=== PATIENT | male | born 1980 | race Caucasian/White ===

== ENCOUNTER 2016-06-21 17:16 | Emergency (ER) | payer SELFPAY ==
[~2016-06-21] VITALS: Ht 193 cm; Wt 163.0 kg
[~2016-06-21 17:16] MED LIST: AMLODIPINE BESY10 MG PO; AMLODIPINE10 MG PO; CIPROFLOXACN500 MG PO; CLONIDINE0.1 MG PO; CORTISPORIN OTI10 ML AD; FLEXERIL PO; FLEXERIL5 MG PO; LABETALOL300 MG PO; LORTAB 1010 MG PO; MEDDOSEPAK PO; NORCO1 TA1 PO; ULTRAM50 M1 PO; ZOFRAN ODT4 MG PO; ZPAK PO
[2016-06-21] MEDS ORDERED: LISINOPRIL20 MG PO (17:32)
[2016-06-21] MEDS ORDERED: ESCITALOPRAM OX10 MG PO (17:32)
[2016-06-21] MEDS ORDERED: AMLODIPINE5 MG PO (17:33)
[2016-06-21 17:51] LABS: HEMATOCRIT 40.9 % (39.0-50.0); HEMOGLOBIN 13.8 g/dl (14.0-18.0); IMMATURE GRANULOCYTES 0.3 % (0.0-1.0); MEAN CELL VOLUME 83.8 fL CALC (80.0-100.0); MEAN CORPUSCULAR HGB 28.3 pG CALC (26.0-32.0); MEAN CORPUSCULAR HGB CONC 33.7 g/L CALC (32.0-36.0); NEUT# 10.17 thou/uL (1.82-7.42); RED BLOOD COUNT 4.88 mill/uL (4.70-6.10); RED CELL DISTRI WIDTH 12.4 % (11.5-15.5)
[2016-06-21 17:55] LABS: URINE BILIRUBIN - DIPSTICK NEGATIVE (NEGATIVE); URINE BLOOD DIPSTICK LARGE (NEGATIVE); URINE CLARITY CLOUDY; URINE GLUCOSE - DIPSTICK NEGATIVE (NEGATIVE); URINE KETONE NEGATIVE (NEGATIVE); URINE LEUK ESTERASE NEGATIVE (NEGATIVE); URINE NITRITE - DIPSTICK NEGATIVE (Negative); URINE PROTEIN - DIPSTICK TRACE mg/dL (NEG-TRACE); URINE SPECIFIC GRAVITY >=1.030; URINE UROBILINOGEN - DIPSTICK 0.2 E.U./dL (0.2)
[2016-06-21 17:57] LABS: URINE COLOR AMBER
[2016-06-21 18:04] LABS: ALBUMIN 4.3 g/dL (3.2-5.0); ALKALINE PHOSPHATASE 65 u/l (38-126); ANION GAP 18 (6-22 (CALC)); BILIRUBIN, TOTAL 0.6 mg/dL (0.0-1.4); BUN 13 mg/dL (9-20); BUN/CREATININE RATIO 16 (12-20 (CALC)); CALCIUM 9.6 mg/dL (8.4-10.2); CARBON DIOXIDE 25 mmol/l (22-30); CHLORIDE 104 mmol/l (95-108); CREATININE 0.8 mg/dL (0.7-1.3); GFR > 60 ML/MIN (>=60 (CALC)); GFR FOR AFR.AMER. > 60 ML/MIN (>=60 (CALC)); GLUCOSE 96 mg/dL (75-110); POTASSIUM 4.1 mmol/l (3.5-5.1); SGOT/AST 32 u/l (17-59); SGPT/ALT 47 u/l (21-72); SODIUM 143 mmol/l (137-146); TOTAL PROTEIN 8.4 g/dL (6.3-8.2)
[2016-06-21 18:08] LABS: URINE RBC >100 RBC/hpf (0-5)
[2016-06-21] MEDS ORDERED: ASPIRIN EC81 MG PO (18:35)
[2016-06-21] MEDS ORDERED: FISH OIL1000 MG PO (18:36)
[2016-06-21 20:12] VITALS: BP 130/86
[2016-06-21] MEDS ORDERED: CIPRO XR500 MG PO (20:13)
[2016-06-21] MEDS ORDERED: PERCOCET 5/325M1 TAB PO (20:13)
== END 2016-06-21 20:26 | disposition home or self-care (01) | DRG 305 ==
LOC: ED 17:16
PROVIDERS: Emergency Medicine
DX: I10 Essential (primary) hypertension (principal); N34.2 Other urethritis; N50.82 Scrotal pain; R10.31 Right lower quadrant pain; R31.29 Other microscopic hematuria; Z87.442 Personal history of urinary calculi

== ENCOUNTER 2016-08-31 19:09 | Emergency (ER) | payer SELFPAY ==
[~2016-08-31] VITALS: Ht 193 cm; Wt 159.1 kg
[~2016-08-31 19:09] MED LIST changes: +ADLT ASA LOW81 MG PO; +AMLODIPINE5 MG PO; +CIPRO XR500 MG PO; +ESCITALOPRAM OX10 MG PO; +FISH OIL1000 MG PO; +LISINOPRIL20 MG PO; +PERCOCET 5/325M1 TAB PO
[2016-08-31] MEDS ORDERED: LISINOPRIL40 MG PO (19:27)
[2016-08-31 19:53] LABS: URINE BLOOD DIPSTICK LARGE (NEGATIVE); URINE CLARITY CLEAR; URINE COLOR YELLOW; URINE GLUCOSE - DIPSTICK NEGATIVE (NEGATIVE); URINE KETONE TRACE mg/dL (NEGATIVE); URINE LEUK ESTERASE NEGATIVE (NEGATIVE); URINE NITRITE - DIPSTICK NEGATIVE (Negative); URINE PROTEIN - DIPSTICK 30 mg/dL (NEG-TRACE); URINE SPECIFIC GRAVITY >=1.030; URINE UROBILINOGEN - DIPSTICK 0.2 E.U./dL (0.2)
[2016-08-31 19:55] LABS: URINE BILIRUBIN - DIPSTICK NEGATIVE (NEGATIVE)
[2016-08-31 20:01] LABS: URINE WBC 0-2 WBC/hpf (0-5)
[2016-08-31 20:07] LABS: HEMATOCRIT 45.1 % (39.0-50.0); HEMOGLOBIN 15.3 g/dl (14.0-18.0); IMMATURE GRANULOCYTES 0.2 % (0.0-1.0); MEAN CELL VOLUME 83.5 fL CALC (80.0-100.0); MEAN CORPUSCULAR HGB 28.3 pG CALC (26.0-32.0); MEAN CORPUSCULAR HGB CONC 33.9 g/L CALC (32.0-36.0); NEUT# 13.19 thou/uL (1.82-7.42); RED BLOOD COUNT 5.4 mill/uL (4.70-6.10); RED CELL DISTRI WIDTH 12.5 % (11.5-15.5)
[2016-08-31 20:20] LABS: ALBUMIN 4.5 g/dL (3.2-5.0); ALKALINE PHOSPHATASE 66 u/l (38-126); AMYLASE 46 u/l (30-110); ANION GAP 19 (6-22 (CALC)); BILIRUBIN, TOTAL 1.2 mg/dL (0.0-1.4); BUN 17 mg/dL (9-20); BUN/CREATININE RATIO 14 (12-20 (CALC)); CALCIUM 9.3 mg/dL (8.4-10.2); CARBON DIOXIDE 23 mmol/l (22-30); CHLORIDE 103 mmol/l (95-108); CREATININE 1.2 mg/dL (0.7-1.3); GFR > 60 ML/MIN (>=60 (CALC)); GFR FOR AFR.AMER. > 60 ML/MIN (>=60 (CALC)); GLUCOSE 109 mg/dL (75-110); LIPASE 93 u/l (23-300); POTASSIUM 4.5 mmol/l (3.5-5.1); SGOT/AST 22 u/l (17-59); SGPT/ALT 50 u/l (21-72); SODIUM 141 mmol/l (137-146); TOTAL PROTEIN 7.9 g/dL (6.3-8.2)
[2016-08-31] MEDS ORDERED: TAMSULOSIN0.4 MG PO (20:51)
[2016-08-31] MEDS ORDERED: PERCOCET 5/325M1 TAB PO (20:51)
[2016-08-31] MEDS ORDERED: ZOFRAN ODT4 MG PO (20:51)
[2016-08-31] MEDS ORDERED: IMODIUM2 MG PO (20:51)
[2016-08-31] MEDS ORDERED: CIPROFLOXACN500 MG PO (20:51)
[2016-08-31 21:10] VITALS: BP 112/74
== END 2016-08-31 21:10 | disposition home or self-care (01) | DRG 694 ==
LOC: ED 19:09
PROVIDERS: Emergency Medicine
DX: N13.2 Hydronephrosis with renal and ureteral calculous obstruction (principal); R50.9 Fever, unspecified; Z87.442 Personal history of urinary calculi; R11.2 Nausea with vomiting, unspecified; R10.9 Unspecified abdominal pain

== ENCOUNTER 2016-12-17 22:27 | Emergency (ER) | payer SELFPAY ==
[~2016-12-17] VITALS: Ht 193 cm; Wt 150.8 kg
[~2016-12-17 22:27] MED LIST changes: +IMODIUM2 MG PO; +LISINOPRIL40 MG PO; +TAMSULOSIN0.4 MG PO
[2016-12-17] MEDS ORDERED: BACTRIM DS1 TAB PO (23:19)
[2016-12-17] MEDS ORDERED: CIPROFLOXACN500 MG PO (23:19)
[2016-12-17] MEDS ORDERED: PERCOCET 5/325M1 TAB PO (23:21)
[2016-12-17 23:24] VITALS: BP 139/97
== END 2016-12-17 23:24 | disposition home or self-care (01) | DRG 603 ==
LOC: ED 22:27
DX: L02.31 Cutaneous abscess of buttock (principal)

== ENCOUNTER 2017-01-08 14:46 | Emergency (ER) | payer OTHER ==
[~2017-01-08] VITALS: Ht 193 cm; Wt 150.0 kg
[~2017-01-08 14:46] MED LIST changes: +BACTRIM DS1 TAB PO
[2017-01-08] MEDS ORDERED: CIPROFLOXACN750 MG PO (15:16)
[2017-01-08 15:49] LABS: HEMATOCRIT 41.3 % (39.0-50.0); HEMOGLOBIN 13.7 g/dl (14.0-18.0); IMMATURE GRANULOCYTES 0.3 % (0.0-1.0); MEAN CELL VOLUME 85.5 fL CALC (80.0-100.0); MEAN CORPUSCULAR HGB 28.4 pG CALC (26.0-32.0); MEAN CORPUSCULAR HGB CONC 33.2 g/L CALC (32.0-36.0); NEUT# 7.08 thou/uL (1.82-7.42); RED BLOOD COUNT 4.83 mill/uL (4.70-6.10); RED CELL DISTRI WIDTH 11.9 % (11.5-15.5)
[2017-01-08 15:50] LABS: URINE BILIRUBIN - DIPSTICK NEGATIVE (NEGATIVE); URINE BLOOD DIPSTICK NEGATIVE (NEGATIVE); URINE CLARITY CLEAR; URINE COLOR YELLOW; URINE GLUCOSE - DIPSTICK NEGATIVE (NEGATIVE); URINE KETONE TRACE mg/dL (NEGATIVE); URINE LEUK ESTERASE NEGATIVE (NEGATIVE); URINE NITRITE - DIPSTICK NEGATIVE (Negative); URINE PROTEIN - DIPSTICK NEGATIVE (NEG-TRACE); URINE SPECIFIC GRAVITY 1.025; URINE UROBILINOGEN - DIPSTICK 0.2 E.U./dL (0.2)
[2017-01-08 16:04] LABS: ALKALINE PHOSPHATASE 62 u/l (38-126); ANION GAP 13 (6-22 (CALC)); BILIRUBIN, TOTAL 0.6 mg/dL (0.0-1.4); BUN 10 mg/dL (9-20); BUN/CREATININE RATIO 14 (12-20 (CALC)); CALCIUM 9.3 mg/dL (8.4-10.2); CARBON DIOXIDE 25 mmol/l (22-30); CHLORIDE 108 mmol/l (95-108); CREATININE 0.7 mg/dL (0.7-1.3); GFR > 60 ML/MIN (>=60 (CALC)); GFR FOR AFR.AMER. > 60 ML/MIN (>=60 (CALC)); GLUCOSE 127 mg/dL (75-110); POTASSIUM 3.9 mmol/l (3.5-5.1); SGOT/AST 21 u/l (17-59); SGPT/ALT 38 u/l (21-72); SODIUM 143 mmol/l (137-146); TOTAL PROTEIN 7.3 g/dL (6.3-8.2)
[2017-01-08 16:09] VITALS: BP 191/133
== END 2017-01-08 16:10 | disposition home or self-care (01) | DRG 395 ==
LOC: ED 14:46
PROVIDERS: Emergency Medicine
DX: K62.89 Other specified diseases of anus and rectum (principal); I10 Essential (primary) hypertension; Z87.442 Personal history of urinary calculi

== ENCOUNTER 2017-03-08 14:02 | Emergency (ER) | payer OTHER ==
[~2017-03-08] VITALS: Ht 193 cm; Wt 151.4 kg
[~2017-03-08 14:02] MED LIST changes: +CIPROFLOXACN750 MG PO
[2017-03-08] MEDS ORDERED: CLONIDINE HCL0.1 MG PO (14:11)
[2017-03-08] MEDS ORDERED: ADVIL200 MG PO (14:11)
[2017-03-08] MEDS ORDERED: AMLODIPINE5 MG PO (14:22)
[2017-03-08] MEDS ORDERED: CLONIDINE0.1 MG PO (14:22)
[2017-03-08] MEDS ORDERED: LISINOPRIL40 MG PO (14:22)
[2017-03-08 14:55] VITALS: BP 164/118
== END 2017-03-08 15:08 | disposition home or self-care (01) | DRG 103 ==
LOC: ED 14:02
DX: G44.209 Tension-type headache, unspecified, not intractable (principal); I16.0 Hypertensive urgency; Z91.14 Patient's other noncompliance with medication regimen

== ENCOUNTER 2017-04-10 12:21 | Emergency (ER) | payer MEDICAID ==
[~2017-04-10] VITALS: Ht 193 cm; Wt 154.0 kg
[~2017-04-10 12:21] MED LIST changes: +ADVIL200 MG PO; +CLONIDINE HCL0.1 MG PO
[2017-04-10 14:56] LABS: ALBUMIN 4.3 g/dL (3.2-5.0); ALKALINE PHOSPHATASE 72 u/l (38-126); ANION GAP 15 (6-22 (CALC)); BILIRUBIN, TOTAL 0.7 mg/dL (0.0-1.4); BUN 9 mg/dL (9-20); BUN/CREATININE RATIO 12 (12-20 (CALC)); CARBON DIOXIDE 26 mmol/l (22-30); CHLORIDE 106 mmol/l (95-108); CREATININE 0.8 mg/dL (0.7-1.3); GFR > 60 ML/MIN (>=60 (CALC)); GFR FOR AFR.AMER. > 60 ML/MIN (>=60 (CALC)); HEMATOCRIT 41.5 % (39.0-50.0); HEMOGLOBIN 13.8 g/dl (14.0-18.0); IMMATURE GRANULOCYTES 0.4 % (0.0-1.0); MEAN CELL VOLUME 84.9 fL CALC (80.0-100.0); MEAN CORPUSCULAR HGB 28.2 pG CALC (26.0-32.0); MEAN CORPUSCULAR HGB CONC 33.3 g/L CALC (32.0-36.0); NEUT# 7.22 thou/uL (1.82-7.42); RED BLOOD COUNT 4.89 mill/uL (4.70-6.10); SGOT/AST 23 u/l (17-59); SGPT/ALT 37 u/l (21-72); SODIUM 143 mmol/l (137-146); TOTAL PROTEIN 7.5 g/dL (6.3-8.2)
[2017-04-10] MEDS ORDERED: NAPROSYN500 MG PO (16:40)
[2017-04-10] MEDS ORDERED: ULTRAM50 M1 PO (16:40)
[2017-04-10] MEDS ORDERED: FLEXERIL PO (16:40)
[2017-04-10 17:15] VITALS: BP 131/74
== END 2017-04-10 17:15 | disposition home or self-care (01) | DRG 103 ==
LOC: ED 12:21
PROVIDERS: Emergency Medicine
DX: R51 Headache (principal); H53.149 Visual discomfort, unspecified; I10 Essential (primary) hypertension

== ENCOUNTER 2017-09-28 19:02 | Emergency (ER) | payer OTHER ==
[~2017-09-28] VITALS: Ht 193 cm; Wt 170.0 kg
[~2017-09-28 19:02] MED LIST changes: +NAPROSYN500 MG PO
[2017-09-28] MEDS ORDERED: METO50TA52 PO (20:56)
[2017-09-28] MEDS ORDERED: DOXYCYCL HYC100 MG PO (20:56)
[2017-09-28 21:26] VITALS: BP 160/110
== END 2017-09-28 21:26 | disposition home or self-care (01) ==
LOC: ED 19:02
DX: L03.115 Cellulitis of right lower limb (principal); I10 Essential (primary) hypertension; S80.861A Insect bite (nonvenomous), right lower leg, initial encounter; W57.XXXA Bitten or stung by nonvenomous insect and other nonvenomous arthropods, initial encounter; Z91.14 Patient's other noncompliance with medication regimen

== ENCOUNTER 2017-10-16 19:36 | Emergency (ER) | payer SELFPAY ==
[~2017-10-16] VITALS: Ht 193 cm; Wt 164.4 kg
[~2017-10-16 19:36] MED LIST changes: +DOXYCYCL HYC100 MG PO; +METO50TA52 PO
[2017-10-16] MEDS ORDERED: CLONIDINE0.1 MG PO (19:45)
[2017-10-16] MEDS ORDERED: LISINOP/HCTZ1 TA2 PO (19:45)
[2017-10-16] MEDS ORDERED: FLEXERIL PO (20:32)
[2017-10-16] MEDS ORDERED: MOTRIN800 MG PO (20:32)
[2017-10-16 20:35] VITALS: BP 113/70
== END 2017-10-16 20:35 | disposition home or self-care (01) | DRG 563 ==
LOC: ED 19:36
DX: S39.012A Strain of muscle, fascia and tendon of lower back, initial encounter (principal); I10 Essential (primary) hypertension; X50.0XXA Overexertion from strenuous movement or load, initial encounter

== ENCOUNTER 2018-03-12 20:03 | Emergency (ER) | payer OTHER ==
[~2018-03-12] VITALS: Ht 193 cm; Wt 171.8 kg
[~2018-03-12 20:03] MED LIST changes: +LISINOP/HCTZ1 TA2 PO; +MOTRIN800 MG PO
[2018-03-12 20:52] LABS: HEMATOCRIT 42.7 % (39.0-50.0); HEMOGLOBIN 14.5 g/dl (14.0-18.0); IMMATURE GRANULOCYTES 0.4 % (0.0-5.0); MEAN CELL VOLUME 84.4 fL CALC (80.0-100.0); MEAN CORPUSCULAR HGB 28.7 pG CALC (26.0-32.0); NEUT# 7.91 thou/uL (1.82-7.42); RED BLOOD COUNT 5.06 mill/uL (4.70-6.10)
[2018-03-12 20:53] LABS: URINE BILIRUBIN - DIPSTICK NEGATIVE (NEGATIVE); URINE BLOOD DIPSTICK NEGATIVE (NEGATIVE); URINE COLOR YELLOW; URINE GLUCOSE - DIPSTICK NEGATIVE (NEGATIVE); URINE KETONE TRACE mg/dL (NEGATIVE); URINE LEUK ESTERASE NEGATIVE (NEGATIVE); URINE NITRITE - DIPSTICK NEGATIVE (Negative); URINE PROTEIN - DIPSTICK 30 mg/dL (NEG-TRACE); URINE SPECIFIC GRAVITY >=1.030; URINE UROBILINOGEN - DIPSTICK 0.2 E.U./dL (0.2)
[2018-03-12 20:55] LABS: BARBITURATES NEGATIVE (NEGATIVE); COCAINE NEGATIVE (NEGATIVE); METHADONE NEGATIVE (NEGATIVE); OXCYCODONE NEGATIVE (NEGATIVE); TETRAHYDROCANNABIONOL NEGATIVE (NEGATIVE); TRICYLIC ANTIDEPRESSANTS NEGATIVE (NEGATIVE)
[2018-03-12 21:03] LABS: URINE MUCUS MODERATE hpf (NONE-FEW); URINE SQUAMOUS EPITHELIAL CELL FEW EPI/hpf (0-FEW)
[2018-03-12 21:07] LABS: ALBUMIN 4.2 g/dL (3.2-5.0); ALKALINE PHOSPHATASE 76 u/l (38-126); ANION GAP 16 (6-22 (CALC)); BILIRUBIN, TOTAL 0.6 mg/dL (0.0-1.4); BUN 13 mg/dL (9-20); BUN/CREATININE RATIO 16 (12-20 (CALC)); CARBON DIOXIDE 28 mmol/l (22-30); CHLORIDE 101 mmol/l (95-108); CREATININE 0.8 mg/dL (0.7-1.3); GFR > 60 ML/MIN (>=60 (CALC)); GFR FOR AFR.AMER. > 60 ML/MIN (>=60 (CALC)); POTASSIUM 4.4 mmol/l (3.5-5.1); SGOT/AST 28 u/l (17-59); SODIUM 141 mmol/l (137-146); TOTAL PROTEIN 7.8 g/dL (6.3-8.2)
[2018-03-12 23:53] VITALS: BP 162/75
== END 2018-03-12 23:53 | disposition home or self-care (01) ==
LOC: ED 20:03
PROVIDERS: Emergency Medicine
DX: R51 Headache (principal); I10 Essential (primary) hypertension; R11.2 Nausea with vomiting, unspecified

== ENCOUNTER 2018-09-20 21:43 | Observation (INO) | payer OTHER ==
[~2018-09-20] VITALS: Ht 193 cm; Wt 176.2 kg
[2018-09-20 22:05] LABS: HEMATOCRIT 41.2 % (39.0-50.0); HEMOGLOBIN 13.8 g/dl (14.0-18.0); IMMATURE GRANULOCYTES 0.2 % (0.0-5.0); MEAN CELL VOLUME 83.6 fL CALC (80.0-100.0); MEAN CORPUSCULAR HGB CONC 33.5 g/L CALC (32.0-36.0); NEUT# 7.4 thou/uL (1.82-7.42); RED BLOOD COUNT 4.93 mill/uL (4.70-6.10); RED CELL DISTRI WIDTH 12.2 % (11.5-15.5)
[2018-09-20 22:23] LABS: ALBUMIN 4.3 g/dL (3.2-5.0); ALKALINE PHOSPHATASE 74 u/l (38-126); ANION GAP 16 (6-22 (CALC)); BILIRUBIN, TOTAL 0.5 mg/dL (0.0-1.4); BUN 13 mg/dL (9-20); BUN/CREATININE RATIO 15 (12-20 (CALC)); CARBON DIOXIDE 25 mmol/l (22-30); CHLORIDE 105 mmol/l (95-108); CREATININE 0.9 mg/dL (0.7-1.3); GFR > 60 ML/MIN (>=60 (CALC)); GFR FOR AFR.AMER. > 60 ML/MIN (>=60 (CALC)); POTASSIUM 3.6 mmol/l (3.5-5.1); SGOT/AST 29 u/l (17-59); SODIUM 143 mmol/l (137-146); TOTAL PROTEIN 7.5 g/dL (6.3-8.2)
[2018-09-20 22:26] LABS: ACT PARTIAL THROMBO TIME 29.6 SECONDS (20.0-32.5)
[2018-09-20 22:35] LABS: MYOGLOBIN 60 ng/mL (0 - 121)
[2018-09-21] VITALS (12 sets, daily range): BP systolic 122–172; BP diastolic 72–113
[2018-09-21 01:27] LABS: URINE BILIRUBIN - DIPSTICK NEGATIVE (NEGATIVE); URINE BLOOD DIPSTICK TRACE-INTACT (NEGATIVE); URINE COLOR YELLOW; URINE GLUCOSE - DIPSTICK NEGATIVE (NEGATIVE); URINE KETONE NEGATIVE (NEGATIVE); URINE LEUK ESTERASE NEGATIVE (NEGATIVE); URINE NITRITE - DIPSTICK NEGATIVE (Negative); URINE PH 5.5 (4.5-8.0); URINE PROTEIN - DIPSTICK NEGATIVE (NEG-TRACE); URINE SPECIFIC GRAVITY >=1.030; URINE UROBILINOGEN - DIPSTICK 0.2 E.U./dL (0.2)
[2018-09-21 01:28] LABS: BARBITURATES NEGATIVE (NEGATIVE); COCAINE NEGATIVE (NEGATIVE); METHADONE NEGATIVE (NEGATIVE); OXCYCODONE NEGATIVE (NEGATIVE); TETRAHYDROCANNABIONOL NEGATIVE (NEGATIVE); TRICYLIC ANTIDEPRESSANTS NEGATIVE (NEGATIVE)
[2018-09-21 03:27] LABS: HEMATOCRIT 37.3 % (39.0-50.0); HEMOGLOBIN 12.3 g/dl (14.0-18.0); IMMATURE GRANULOCYTES 0.2 % (0.0-5.0); MEAN CELL VOLUME 85.4 fL CALC (80.0-100.0); MEAN CORPUSCULAR HGB 28.1 pG CALC (26.0-32.0); NEUT# 4.83 thou/uL (1.82-7.42); RED BLOOD COUNT 4.37 mill/uL (4.70-6.10); RED CELL DISTRI WIDTH 12.1 % (11.5-15.5)
[2018-09-21 03:33] LABS: ANION GAP 13 (6-22 (CALC)); BUN 13 mg/dL (9-20); BUN/CREATININE RATIO 18 (12-20 (CALC)); CALCULATED LDLCHOLESTEROL 83 mg/dL (62-129 (CALC)); CARBON DIOXIDE 26 mmol/l (22-30); CHLORIDE 106 mmol/l (95-108); CHOLESTEROL HDL RATIO 5.8 (<4.4 (CALC)); CREATININE 0.8 mg/dL (0.7-1.3); GFR > 60 ML/MIN (>=60 (CALC)); GFR FOR AFR.AMER. > 60 ML/MIN (>=60 (CALC)); HDL CHOLESTEROL 29 mg/dL (>=40); POTASSIUM 3.7 mmol/l (3.5-5.1); SODIUM 142 mmol/l (137-146); TOTAL CHOLESTEROL 168 mg/dl (0-199); TOTAL TRIGLYCERIDES 280 mg/dl (30-149); VLDL CHOLESTROL 56 mg/dl (5-56 (CALC))
[2018-09-21] MEDS ORDERED: ATORVASTATIN CA10 MG PO (11:33)
[2018-09-21] MEDS ORDERED: GLUCOPHAGE500 MG PO (11:33)
[2018-09-21] MEDS ORDERED: ASPIRIN CHEWABL81 MG PO (11:33)
[2018-09-21] MEDS ORDERED: AMLODIPINE BESYL5 MG PO (11:33)
[2018-09-21] MEDS ORDERED: LISINOPRIL20 M1 PO (11:33)
[2018-09-21] MEDS ORDERED: METO25TAB PO (11:33)
== END 2018-09-21 16:35 | disposition home or self-care (01) ==
LOC: ED 21:43 → ED-I 22:02 → ED 22:02 → ED-I 22:02 → ED 23:05 → ICU 23:06
PROVIDERS: Emergency Medicine; ADMIT Internal Medicine; ATTEND Internal Medicine
DX: I16.0 Hypertensive urgency (principal); I10 Essential (primary) hypertension; I47.2 Ventricular tachycardia; T46.5X6A Underdosing of other antihypertensive drugs, initial encounter; E66.01 Morbid (severe) obesity due to excess calories; G47.30 Sleep apnea, unspecified; E11.9 Type 2 diabetes mellitus without complications; Z91.128 Patient's intentional underdosing of medication regimen for other reason
CPT/HCPCS: J0153

== ENCOUNTER 2018-09-23 06:47 | Emergency (ER) | payer OTHER ==
[~2018-09-23] VITALS: Ht 193 cm; Wt 176.8 kg
[~2018-09-23 06:47] MED LIST changes: +AMLODIPINE BESYL5 MG PO; +ASPIRIN CHEWABL81 MG PO; +ATORVASTATIN CA10 MG PO; +GLUCOPHAGE500 MG PO; +LISINOPRIL20 M1 PO; +METO25TAB PO
[2018-09-23 07:24] LABS: HEMATOCRIT 42.2 % (39.0-50.0); HEMOGLOBIN 13.9 g/dl (14.0-18.0); IMMATURE GRANULOCYTES 0.6 % (0.0-5.0); MEAN CELL VOLUME 84.2 fL CALC (80.0-100.0); MEAN CORPUSCULAR HGB 27.7 pG CALC (26.0-32.0); MEAN CORPUSCULAR HGB CONC 32.9 g/L CALC (32.0-36.0); NEUT# 5.79 thou/uL (1.82-7.42); RED BLOOD COUNT 5.01 mill/uL (4.70-6.10); RED CELL DISTRI WIDTH 12.1 % (11.5-15.5)
[2018-09-23 07:33] LABS: ALBUMIN 4.4 g/dL (3.2-5.0); ALKALINE PHOSPHATASE 74 u/l (38-126); ANION GAP 16 (6-22 (CALC)); BILIRUBIN, TOTAL 0.5 mg/dL (0.0-1.4); BUN 18 mg/dL (9-20); BUN/CREATININE RATIO 23 (12-20 (CALC)); CARBON DIOXIDE 27 mmol/l (22-30); CHLORIDE 102 mmol/l (95-108); CREATININE 0.8 mg/dL (0.7-1.3); GFR > 60 ML/MIN (>=60 (CALC)); GFR FOR AFR.AMER. > 60 ML/MIN (>=60 (CALC)); POTASSIUM 4.1 mmol/l (3.5-5.1); SGOT/AST 27 u/l (17-59); SODIUM 141 mmol/l (137-146); TOTAL PROTEIN 7.7 g/dL (6.3-8.2)
[2018-09-23 07:44] LABS: MYOGLOBIN 27 ng/mL (0 - 121)
[2018-09-23 08:35] VITALS: BP 161/104
== END 2018-09-23 08:55 | disposition home or self-care (01) ==
LOC: ED 06:47
PROVIDERS: Emergency Medicine
DX: R07.9 Chest pain, unspecified (principal); E11.9 Type 2 diabetes mellitus without complications; I10 Essential (primary) hypertension; Z79.84 Long term (current) use of oral hypoglycemic drugs

== ENCOUNTER 2018-10-12 18:42 | Emergency (ER) | payer OTHER ==
[~2018-10-12] VITALS: Ht 193 cm; Wt 165.9 kg
[2018-10-12] MEDS ORDERED: CENTRUM MEN1 TAB (19:05)
[2018-10-12] MEDS ORDERED: POTASSIUM99 MG PO (19:06)
[2018-10-12 19:12] LABS: HEMATOCRIT 41.1 % (39.0-50.0); HEMOGLOBIN 13.5 g/dl (14.0-18.0); IMMATURE GRANULOCYTES 0.3 % (0.0-5.0); MEAN CELL VOLUME 85.3 fL CALC (80.0-100.0); MEAN CORPUSCULAR HGB CONC 32.8 g/L CALC (32.0-36.0); NEUT# 5.92 thou/uL (1.82-7.42); RED BLOOD COUNT 4.82 mill/uL (4.70-6.10); RED CELL DISTRI WIDTH 12.5 % (11.5-15.5)
[2018-10-12 19:18] LABS: ALBUMIN 4.9 g/dL (3.2-5.0); ALKALINE PHOSPHATASE 74 u/l (38-126); AMYLASE 67 u/l (30-110); ANION GAP 14 (6-22 (CALC)); BUN 17 mg/dL (9-20); BUN/CREATININE RATIO 19 (12-20 (CALC)); CARBON DIOXIDE 27 mmol/l (22-30); CHLORIDE 106 mmol/l (95-108); CPK 52 u/l (52-200); CREATININE 0.9 mg/dL (0.7-1.3); GFR > 60 ML/MIN (>=60 (CALC)); GFR FOR AFR.AMER. > 60 ML/MIN (>=60 (CALC)); LIPASE 169 u/l (23-300); SGOT/AST 33 u/l (17-59); SODIUM 143 mmol/l (137-146); TOTAL PROTEIN 8.8 g/dL (6.3-8.2)
[2018-10-12 19:20] LABS: BILIRUBIN, TOTAL 0.9 mg/dL (0.0-1.4)
[2018-10-12 19:28] LABS: ACT PARTIAL THROMBO TIME 28.6 SECONDS (20.0-32.5); D-DIMER 0.28 mg/L (0.19-0.60); PROTHROMBIN TIME 10.5 SECONDS (9.0-12.5)
[2018-10-12 19:29] LABS: MYOGLOBIN 53 ng/mL (0 - 121)
[2018-10-12] MEDS ORDERED: TORADOL PO (19:54)
[2018-10-12 20:08] VITALS: BP 125/67
== END 2018-10-12 20:08 | disposition home or self-care (01) ==
LOC: ED 18:42
PROVIDERS: Family Medicine
DX: R07.89 Other chest pain (principal); I10 Essential (primary) hypertension; E11.9 Type 2 diabetes mellitus without complications; Z79.84 Long term (current) use of oral hypoglycemic drugs

== ENCOUNTER 2018-11-01 17:23 | Observation (INO) | payer MEDICAID ==
[~2018-11-01] VITALS: Ht 193 cm; Wt 156.0 kg
[~2018-11-01 17:23] MED LIST changes: +CENTRUM MEN1 TAB; +POTASSIUM99 MG PO; +TORADOL PO
--- NOTE | 2018-11-01 17:57 | NUR ---
PATIENT AMBULATED TO ROOM WITH STEADY GAIT AND PHYSICIAN NOTIFIED OF PATIENT STATUS
[2018-11-01 18:27] LABS: HEMATOCRIT 44.7 % (39.0-50.0); HEMOGLOBIN 14.4 g/dl (14.0-18.0); IMMATURE GRANULOCYTES 0.3 % (0.0-5.0); MEAN CELL VOLUME 86.5 fL CALC (80.0-100.0); MEAN CORPUSCULAR HGB 27.9 pG CALC (26.0-32.0); MEAN CORPUSCULAR HGB CONC 32.2 g/L CALC (32.0-36.0); NEUT# 7.79 thou/uL (1.82-7.42); RED BLOOD COUNT 5.17 mill/uL (4.70-6.10)
[2018-11-01 18:43] LABS: ALBUMIN 5.1 g/dL (3.2-5.0); ALKALINE PHOSPHATASE 81 u/l (38-126); ANION GAP 18 (6-22 (CALC)); BILIRUBIN, TOTAL 1.1 mg/dL (0.0-1.4); BUN 22 mg/dL (9-20); BUN/CREATININE RATIO 9 (12-20 (CALC)); CARBON DIOXIDE 22 mmol/l (22-30); CHLORIDE 108 mmol/l (95-108); CPK 52 u/l (52-200); GFR 30 ML/MIN (>=60 (CALC)); GFR FOR AFR.AMER. 37 ML/MIN (>=60 (CALC)); LIPASE 169 u/l (23-300); POTASSIUM 4.6 mmol/l (3.5-5.1); SGOT/AST 32 u/l (17-59); SODIUM 142 mmol/l (137-146); TOTAL PROTEIN 8.7 g/dL (6.3-8.2)
[2018-11-01 18:49] LABS: CREATININE 2.4 mg/dL (0.7-1.3)
--- NOTE | 2018-11-01 18:57 | NUR ---
PT STATES THAT HE HAS BEEN MONITORING HIS BP AND NOTICED IT HAS BEEN LOWER TODAY THE USUAL. STATES FEELING WEAK. IS AOX4. DENIES ANY C/P, SOB, N/V.
--- NOTE | 2018-11-01 19:16 | NUR ---
REPORT GIVEN TO LINO LIMON
--- NOTE | 2018-11-01 19:49 | NUR ---
REPORT CALLED TO [facility]
--- NOTE | 2018-11-01 19:55 | NUR ---
TO ROOM VIA STRETCHER WITH POCKET MONITOR. [place]. JAMES.
[2018-11-01 20:11] VITALS: BP 107/75
--- NOTE | 2018-11-01 20:26 | NUR ---
PT. ARRIVED TO THE FLOOR WITH ER NURSE, ASHLY HUYNH @2002. ADMISSION ASSESSMENT COMPLETED. IV SITE PATENT AND INFUSING BOLUS. EDUCATED ON POC, CALL LIGHT, AND ROOM; VERBALIZED UNDERSTANDING. ORTHOSTATIC B/P'S OBTAINED; SEE INTERVENTION. PT. IS INSTRUCTED TO CALL FOR OOB NEEDS IF HE IS FEELING DIZZ/WEAK AND VERBALIZES UNDERSTANDING. INSTRUCTED PT. ON NEED FOR URINE SAMPLE. URINAL IS AT BEDSIDE. PT. REPORTS SLIGHT ACHE TO BACK BUT DENIES NEEDS FOR PAIN MEDICATION ALSO OFFERED ICE/HOT PACKS AND ALSO DECLINES. ENCOURAGED TO CALL FOR ANY NEEDS. SHAI LIGHT IS IN REACH. WILL CONTINUE TO MONITOR.
[2018-11-01 20:30] VITALS: BP 117/70
[2018-11-01 20:35] VITALS: BP 109/72
[2018-11-01 20:40] VITALS: BP 111/59
--- NOTE | 2018-11-01 22:21 | NUR ---
RESTING IN BED WITH NO DISTRESS NOTED; DENIES NEEDS. ENCOURAGED TO CALL FOR ANY NEEDS. CALL LIGHT IS IN REACH.
--- NOTE | 2018-11-01 23:25 | NUR ---
RESTING IN BED WITH EYES CLOSED. NO DISTRESS NOTED. UA OBTAINED. CALL LIGHT IS IN REACH. WILL CONTINUE TO MONITOR.
[2018-11-01 23:58] LABS: URINE BILIRUBIN - DIPSTICK NEGATIVE (NEGATIVE); URINE BLOOD DIPSTICK NEGATIVE (NEGATIVE); URINE COLOR YELLOW; URINE GLUCOSE - DIPSTICK NEGATIVE (NEGATIVE); URINE KETONE 15 mg/dL (NEGATIVE); URINE LEUK ESTERASE NEGATIVE (NEGATIVE); URINE NITRITE - DIPSTICK NEGATIVE (Negative); URINE PH 5.5 (4.5-8.0); URINE PROTEIN - DIPSTICK NEGATIVE (NEG-TRACE); URINE UROBILINOGEN - DIPSTICK 0.2 E.U./dL (0.2)
[2018-11-02 00:10] VITALS: BP 130/81
--- NOTE | 2018-11-02 02:34 | NUR ---
PT. RESTING IN BED WITH EYES CLOSED; RESP. EVEN AND UNLABORED. CALL LIGHT IS IN REACH.
[2018-11-02 04:38] VITALS: BP 127/79
--- NOTE | 2018-11-02 04:38 | NUR ---
PT. RESTING IN BED ASLEEP AND AWAKENED FOR AM VS; VSS; DENIES NEEDS/PAIN. NEW BAG OF ORDERED IVF HUNG. ENCOURAGED TO CALL FOR ANY NEEDS. CALL LIGHT IS IN REACH.
[2018-11-02 05:36] LABS: ANION GAP 13 (6-22 (CALC)); BUN 19 mg/dL (9-20); CHLORIDE 105 mmol/l (95-108); SODIUM 142 mmol/l (137-146)
[2018-11-02 05:43] LABS: BUN/CREATININE RATIO 15 (12-20 (CALC)); CARBON DIOXIDE 28 mmol/l (22-30); CHOLESTEROL HDL RATIO 5.1 (<4.4 (CALC)); CREATININE 1.3 mg/dL (0.7-1.3); GFR > 60 ML/MIN (>=60 (CALC)); GFR FOR AFR.AMER. > 60 ML/MIN (>=60 (CALC))
--- NOTE | 2018-11-02 08:00 | NUR ---
PT SITTING IN RECLINER AT BEDSIDE, NO SIGNS OF DISTRESS NOTED, RESP EVEN AND UNLABORED. DISCUSSED POC, PT ALERT AND ORIENTED X3. VOICES NO NEEDS OR COMPLAINTS AT THIS TIME. PT STATES HE FEELS BETTER. ASSESSMENT COMPLETED, CALL LIGHT IN REACH,CONTINUE TO MONITOR.
[2018-11-02 08:04] VITALS: BP 117/72
[2018-11-02 10:35] VITALS: BP 129/79
--- NOTE | 2018-11-02 10:52 | NUR ---
PT SITTING IN CHAIR NO SIGNS OF DISTRESS NOTED, RESP EVEN AND UNLABORED. VOICES NO NEEDS OR COMPLAINTS AT THIS TIME. CALL LIGHT IN REACH,CONTINUE TO MONITOR.
--- NOTE | 2018-11-02 12:41 | NUR ---
Discharge instructions given. Patient verbalizes understanding of same. Discharged in stable condition via Ambulatory to Home with family. All belongings sent with pt.
== END 2018-11-02 12:42 | disposition home or self-care (01) ==
LOC: ED 17:23 → ED-I 18:53 → ED 19:03 → MS2 19:04
PROVIDERS: Family Medicine; ADMIT Internal Medicine; ATTEND Internal Medicine
DX: N17.9 Acute kidney failure, unspecified (principal); E86.0 Dehydration; E78.5 Hyperlipidemia, unspecified; I95.9 Hypotension, unspecified
CPT/HCPCS: G0378

== ENCOUNTER 2019-12-14 19:27 | Emergency (ER) | payer OTHER ==
[~2019-12-14] VITALS: Ht 193 cm; Wt 154.0 kg
[2019-12-14 20:54] LABS: HEMATOCRIT 44.3 % (39.0-50.0); HEMOGLOBIN 14.8 g/dl (14.0-18.0); IMMATURE GRANULOCYTES 0.3 % (0.0-5.0); MEAN CELL VOLUME 84.2 fL CALC (80.0-100.0); MEAN CORPUSCULAR HGB 28.1 pG CALC (26.0-32.0); MEAN CORPUSCULAR HGB CONC 33.4 g/dL CAL (32.0-36.0); NEUT# 9.53 thou/uL (1.82-7.42); RED BLOOD COUNT 5.26 mill/uL (4.70-6.10); RED CELL DISTRI WIDTH 11.9 % (11.5-15.5)
[2019-12-14 21:09] LABS: ALBUMIN 4.5 g/dL (3.2-5.0); ALKALINE PHOSPHATASE 79 u/l (38-126); ANION GAP 13 (6-22 (CALC)); BUN 13 mg/dL (9-20); BUN/CREATININE RATIO 19 (12-20 (CALC)); CARBON DIOXIDE 27 mmol/l (22-30); CHLORIDE 104 mmol/l (95-108); CREATININE 0.7 mg/dL (0.7-1.3); GFR > 60 ML/MIN (>=60 (CALC)); GFR FOR AFR.AMER. > 60 ML/MIN (>=60 (CALC)); POTASSIUM 4.3 mmol/l (3.5-5.1); SGOT/AST 20 u/l (17-59); SODIUM 139 mmol/l (137-146); TOTAL PROTEIN 7.8 g/dL (6.3-8.2)
[2019-12-14 21:13] LABS: BILIRUBIN, TOTAL 0.5 mg/dL (0.0-1.4)
[2019-12-14] MEDS ORDERED: LISINOPRIL20 MG PO (23:16)
[2019-12-14 23:35] VITALS: BP 164/97
== END 2019-12-14 23:35 | disposition home or self-care (01) ==
LOC: ED 19:27
PROVIDERS: Emergency Medicine
DX: I10 Essential (primary) hypertension (principal); Z91.11 Patient's noncompliance with dietary regimen

== ENCOUNTER 2020-01-02 19:28 | Emergency (ER) | payer MEDICAID ==
[~2020-01-02] VITALS: Ht 193 cm; Wt 145.0 kg
[2020-01-02 20:43] LABS: HEMATOCRIT 45.7 % (39.0-50.0); HEMOGLOBIN 14.7 g/dl (14.0-18.0); IMMATURE GRANULOCYTES 0.3 % (0.0-5.0); MEAN CELL VOLUME 86.1 fL CALC (80.0-100.0); MEAN CORPUSCULAR HGB 27.7 pG CALC (26.0-32.0); MEAN CORPUSCULAR HGB CONC 32.2 g/dL CAL (32.0-36.0); NEUT# 9.48 thou/uL (1.82-7.42); RED BLOOD COUNT 5.31 mill/uL (4.70-6.10); RED CELL DISTRI WIDTH 12.1 % (11.5-15.5)
[2020-01-02 21:04] LABS: ALBUMIN 4.9 g/dL (3.2-5.0); BILIRUBIN, TOTAL 1.3 mg/dL (0.0-1.4); CREATININE 2.2 mg/dL (0.7-1.3); POTASSIUM 4.2 mmol/l (3.5-5.1)
[2020-01-02 21:43] VITALS: BP 98/62
== END 2020-01-02 21:43 | disposition home or self-care (01) ==
LOC: ED 19:28
PROVIDERS: Family Medicine
DX: N17.9 Acute kidney failure, unspecified (principal)

== ENCOUNTER 2021-05-02 20:40 | Observation (INO) | payer OTHER ==
[~2021-05-02] VITALS: Ht 193 cm; Wt 136.0 kg
--- NOTE | 2021-05-02 20:40 | NUR ---
AMBULATORY TO ROOM /TIRAGED AT BEDSIDE.
[2021-05-02] MEDS ORDERED: CRESTOR10 MG PO (21:48)
[2021-05-02] MEDS ORDERED: NORVASC5 M1 PO (21:49)
[2021-05-02] MEDS ORDERED: METOPROL TAR25 MG PO (21:49)
[2021-05-02] MEDS ORDERED: ASPIRIN81 MG PO (21:50)
[2021-05-02] MEDS ORDERED: MULTIVITAMIN1 TAB PO (21:50)
[2021-05-02 22:44] LABS: HEMOGLOBIN 12.8 g/dl (14.0-18.0); IMMATURE GRANULOCYTES 0.1 % (0.0-5.0); MEAN CELL VOLUME 88.9 fL CALC (80.0-100.0); MEAN CORPUSCULAR HGB 28.4 pG CALC (26.0-32.0); NEUT# 5.73 thou/uL (1.82-7.42); RED BLOOD COUNT 4.5 mill/uL (4.70-6.10); RED CELL DISTRI WIDTH 12.6 % (11.5-15.5)
[2021-05-02 23:01] LABS: ALKALINE PHOSPHATASE 65 u/l (38-126); ANION GAP 11 (6-22 (CALC)); BUN 18 mg/dL (9-20); CARBON DIOXIDE 27 mmol/l (22-30); CHLORIDE 107 mmol/l (95-108); POTASSIUM 3.6 mmol/l (3.5-5.1); SGOT/AST 20 u/l (17-59); SODIUM 141 mmol/l (137-146); TOTAL PROTEIN 7.2 g/dL (6.3-8.2)
[2021-05-02 23:05] LABS: URINE BILIRUBIN - DIPSTICK NEGATIVE (NEGATIVE); URINE BLOOD DIPSTICK NEGATIVE (NEGATIVE); URINE COLOR YELLOW; URINE GLUCOSE - DIPSTICK NEGATIVE (NEGATIVE); URINE KETONE 15 mg/dL (NEGATIVE); URINE LEUK ESTERASE NEGATIVE (NEGATIVE); URINE PROTEIN - DIPSTICK NEGATIVE (NEG-TRACE); URINE SPECIFIC GRAVITY >=1.030; URINE UROBILINOGEN - DIPSTICK 0.2 E.U./dL (0.2)
[2021-05-02 23:12] LABS: URINE NITRITE - DIPSTICK NEGATIVE (Negative)
[2021-05-02 23:13] LABS: MYOGLOBIN 24 ng/mL (0 - 121)
[2021-05-02 23:15] LABS: ALBUMIN 3.9 g/dL (3.2-5.0); BILIRUBIN, TOTAL 0.4 mg/dL (0.0-1.4); BUN/CREATININE RATIO 20 (12-20 (CALC)); CREATININE 0.9 mg/dL (0.7-1.3); GFR > 60 ML/MIN (>=60 (CALC)); GFR FOR AFR.AMER. > 60 ML/MIN (>=60 (CALC))
--- NOTE | 2021-05-03 00:35 | NUR ---
P RESTING. NO DISTRESS AT THIS TIME.
--- NOTE | 2021-05-03 01:30 | NUR ---
REASSESSMENT DONE. PT SLEEPING
--- NOTE | 2021-05-03 02:30 | NUR ---
RESTING QUIETLY. NAD
--- NOTE | 2021-05-03 05:30 | NUR ---
Reassessment of patient completed. No distress noted.
--- NOTE | 2021-05-03 06:28 | NUR ---
Reassessment of patient completed. No distress noted.
--- NOTE | 2021-05-03 07:37 | NUR ---
PT RESTING ON STRETCHER EYES CLOSED SPONTANEOUS RESPONSE UPON ENTERING ROOM. SKIN WARM AND DRY. RESP EVEN UNLABORED. A&OX3 S1S2 VSS. NO APPARENT DISTRESS.
--- NOTE | 2021-05-03 10:00 | NUR ---
MD IN TO SEE PT DISCUSSED D/C POC PENDING TROPONIN RESULTS.
[2021-05-03 10:02] VITALS: BP 146/86
--- NOTE | 2021-05-03 10:04 | NUR ---
PT RESTING ON ED BED AWARE OF POC AND AWAITING A THIRD BLOOD DRAW TO DETERMINE IF DISCHARGE WILL HAPPEN. PT REPORTS HE IS STILL HAVING SOME CHEST PRESSURE. PT DENIES ANY NAUSEA. VSS. WILL CONTINUE TO MONITOR.
--- NOTE | 2021-05-03 13:16 | NUR ---
DISCUSSED ADMIT DC WITH PT AND NEED TO FU WITH PCP AND CARDIOLOGY THIS WEEK. PT STATES HE HAS ALREADY SCHEDULED. PT DECLINED WC AND LEFT AMBULATORY IN NO DISTRESS
== END 2021-05-03 13:15 | disposition home or self-care (01) | DRG 313 ==
LOC: ED 20:40 → ED-I 05-03 00:05 → ED 05-03 00:10 → ED-I 05-03 00:11
PROVIDERS: Emergency Medicine; ADMIT Internal Medicine; ATTEND Internal Medicine
DX: R07.9 Chest pain, unspecified (principal); R20.0 Anesthesia of skin; I10 Essential (primary) hypertension; E11.9 Type 2 diabetes mellitus without complications; E78.5 Hyperlipidemia, unspecified; E66.01 Morbid (severe) obesity due to excess calories; G47.30 Sleep apnea, unspecified; Z20.822 Contact with and (suspected) exposure to COVID-19

== ENCOUNTER 2021-07-15 15:33 | Emergency (ER) | payer OTHER ==
[~2021-07-15] VITALS: Ht 193 cm; Wt 120.0 kg
[2021-07-15] VITALS (13 sets, daily range): BP systolic 106–132; BP diastolic 67–94
[~2021-07-15 15:33] MED LIST changes: +ASPIRIN81 MG PO; +CRESTOR10 MG PO; +METOPROL TAR25 MG PO; +MULTIVITAMIN1 TAB PO; +NORVASC5 M1 PO
[2021-07-15 16:30] LABS: URINE BILIRUBIN - DIPSTICK NEGATIVE (NEGATIVE); URINE BLOOD DIPSTICK MODERATE (NEGATIVE); URINE COLOR YELLOW; URINE GLUCOSE - DIPSTICK NEGATIVE (NEGATIVE); URINE KETONE 40 mg/dL (NEGATIVE); URINE LEUK ESTERASE NEGATIVE (NEGATIVE); URINE PH 5.5 (4.5-8.0); URINE PROTEIN - DIPSTICK NEGATIVE (NEG-TRACE); URINE SPECIFIC GRAVITY >=1.030; URINE UROBILINOGEN - DIPSTICK 0.2 E.U./dL (0.2)
[2021-07-15 16:32] LABS: HEMATOCRIT 44.2 % (39.0-50.0); HEMOGLOBIN 14.2 g/dl (14.0-18.0); IMMATURE GRANULOCYTES 0.1 % (0.0-5.0); MEAN CORPUSCULAR HGB 28.3 pG CALC (26.0-32.0); MEAN CORPUSCULAR HGB CONC 32.1 g/dL CAL (32.0-36.0); NEUT# 9.64 thou/uL (1.82-7.42); RED BLOOD COUNT 5.02 mill/uL (4.70-6.10); RED CELL DISTRI WIDTH 12.5 % (11.5-15.5)
[2021-07-15 16:34] LABS: URINE NITRITE - DIPSTICK NEGATIVE (Negative)
[2021-07-15 16:56] LABS: ALBUMIN 4.4 g/dL (3.2-5.0); ALKALINE PHOSPHATASE 67 u/l (38-126); ANION GAP 15 (6-22 (CALC)); BILIRUBIN, TOTAL 0.7 mg/dL (0.0-1.4); BUN 24 mg/dL (9-20); BUN/CREATININE RATIO 26 (12-20 (CALC)); CARBON DIOXIDE 21 mmol/l (22-30); CHLORIDE 109 mmol/l (95-108); CREATININE 0.9 mg/dL (0.7-1.3); GFR > 60 ML/MIN (>=60 (CALC)); GFR FOR AFR.AMER. > 60 ML/MIN (>=60 (CALC)); LIPASE 102 u/l (23-300); POTASSIUM 4.2 mmol/l (3.5-5.1); SGOT/AST 26 u/l (17-59); SODIUM 141 mmol/l (137-146)
[2021-07-15] MEDS ORDERED: TRAMADOL HCL50 MG PO (21:45)
== END 2021-07-15 22:03 | disposition home or self-care (01) ==
LOC: ED 15:33
PROVIDERS: Nurse Practitioner
DX: K42.9 Umbilical hernia without obstruction or gangrene (principal); I10 Essential (primary) hypertension; E11.9 Type 2 diabetes mellitus without complications; E78.5 Hyperlipidemia, unspecified
CPT/HCPCS: Q9967

== ENCOUNTER 2021-08-18 07:40 | Day surgery (SDC) | payer OTHER ==
[~2021-08-18] VITALS: Ht 193 cm; Wt 133.8 kg
[~2021-08-18 07:40] MED LIST changes: +FLEXERIL5 M1 PO; +TRAMADOL HCL50 MG PO; +VALSARTAN40 MG PO
[2021-08-18] MEDS ORDERED: ADVIL LIQUI-GE200 MG PO (07:55)
[2021-08-18] MEDS ORDERED: PERCOCET 5/321 COMBO PO (09:49)
[2021-08-18 11:03] VITALS: BP 106/69
== END 2021-08-18 11:25 | disposition home or self-care (01) ==
LOC: ORM 07:40
PROVIDERS: ATTEND Surgery
DX: K42.9 Umbilical hernia without obstruction or gangrene (principal); I10 Essential (primary) hypertension
CPT/HCPCS: J0131

== ENCOUNTER 2022-02-09 09:45 | Day surgery (SDC) | payer OTHER ==
[~2022-02-09] VITALS: Ht 193 cm; Wt 158.8 kg
[~2022-02-09 09:45] MED LIST changes: +ADVIL LIQUI-GE200 MG PO; +PERCOCET 5/321 COMBO PO
[2022-02-09] MEDS ORDERED: PERCOCET 5/321 COMBO PO (12:20)
[2022-02-09 13:37] VITALS: BP 118/76
== END 2022-02-09 13:25 | disposition home or self-care (01) ==
LOC: ENDO 09:45 → ORM 12:45 → ENDO 13:25
PROVIDERS: ATTEND Surgery
DX: K60.1 Chronic anal fissure (principal); I10 Essential (primary) hypertension
CPT/HCPCS: C9290; J1956

== ENCOUNTER 2022-06-21 22:46 | Emergency (ER) | payer OTHER ==
[~2022-06-21] VITALS: Ht 193 cm; Wt 158.0 kg
[2022-06-21 23:31] LABS: BASO% 0.3 % (0-3); EOS% 1.7 % (0-8); HEMATOCRIT 41.4 % (39.0-50.0); HEMOGLOBIN 13.4 g/dl (14.0-18.0); IMMATURE GRANULOCYTES 0.2 % (0.0-5.0); LYMPH% 32.1 % (15-41); MEAN CELL VOLUME 86.3 fL CALC (80.0-100.0); MEAN CORPUSCULAR HGB 27.9 pG CALC (26.0-32.0); MEAN CORPUSCULAR HGB CONC 32.4 g/dL CAL (32.0-36.0); MONO% 6.6 % (2-13); NEUT# 5.51 thou/uL (1.82-7.42); NEUT% 59.1 % (42-76); RED BLOOD COUNT 4.8 mill/uL (4.70-6.10); RED CELL DISTRI WIDTH 12.1 % (11.5-15.5)
[2022-06-21 23:31] LABS: URINE BLOOD DIPSTICK LARGE (NEGATIVE); URINE COLOR RED; URINE GLUCOSE - DIPSTICK NEGATIVE (NEGATIVE); URINE KETONE 40 mg/dL (NEGATIVE); URINE LEUK ESTERASE TRACE (NEGATIVE); URINE PH 5.5 (4.5-8.0); URINE PROTEIN - DIPSTICK 100 mg/dL (NEG-TRACE); URINE SPECIFIC GRAVITY 1.025
[2022-06-21 23:36] LABS: URINE NITRITE - DIPSTICK NEGATIVE (Negative)
[2022-06-21 23:37] LABS: URINE BILIRUBIN - DIPSTICK NEGATIVE (NEGATIVE)
[2022-06-21 23:38] LABS: URINE EPITHELIAL CELLS FEW EPI/hpf (0-FEW); URINE RBC >100 RBC/hpf (0-5)
[2022-06-21 23:39] LABS: URINE BACTERIA MODERATE hpf
[2022-06-21 23:42] LABS: ALBUMIN 4.5 g/dL (3.2-5.0); ALKALINE PHOSPHATASE 64 u/l (38-126); ANION GAP 14 (6-22 (CALC)); BILIRUBIN, TOTAL 0.3 mg/dL (0.2-1.3); BUN 22 mg/dL (9-20); BUN/CREATININE RATIO 27 (12-20 (CALC)); CARBON DIOXIDE 22 mmol/l (22-30); CHLORIDE 105 mmol/l (95-108); CREATININE 0.8 mg/dL (0.7-1.3); GFR FOR AFR.AMER. > 60 ML/MIN (>=60 (CALC)); GFR OTHER RACES > 60 ML/MIN (>=60 (CALC)); POTASSIUM 3.8 mmol/l (3.5-5.1); SGOT/AST 31 u/l (17-59); SODIUM 137 mmol/l (137-146); TOTAL PROTEIN 7.8 g/dL (6.3-8.2)
[2022-06-22] MEDS ORDERED: CIPROFLOXACN500 MG PO (01:53)
[2022-06-22 02:49] VITALS: BP 136/86
== END 2022-06-22 02:51 | disposition home or self-care (01) ==
LOC: ED 22:46
PROVIDERS: Emergency Medicine
DX: I10 Essential (primary) hypertension (principal); R31.9 Hematuria, unspecified; E78.00 Pure hypercholesterolemia, unspecified; E11.9 Type 2 diabetes mellitus without complications; N39.0 Urinary tract infection, site not specified
CPT/HCPCS: J1956